=== PATIENT | female | born 1990 | race Caucasian/White ===

== ENCOUNTER 2022-05-03 07:51 | Inpatient (IN) ==
[2022-05-03] MEDS ORDERED: OXYTOCIN 30 UNITS/500 ML BAG IV PRN ×3 (08:40→21:21)
[2022-05-03] MEDS ORDERED: PENICILLIN G POTASSIUM 6 MU in DEXTROSE 5% 250 ML IV STA (08:40)
[2022-05-03] MEDS: LACTATED RINGER'S 1,000 ML IV PRN ×2 (08:59→18:29)
--- NOTE | 2022-05-03 09:11 | History & Physical Report ---
Date of Service May 03, 2022 Assessment & Plan (1) conceived through in vitro fertilization: Plan: 32 y/o at 39 5/7 wga presents for eIOL VSS Fetus cat 1 Labor - will start pit. Discussed timing of pit, arom, pt amenable GBS +, will start pcn epidural prn Admission and Anticipated Discharge Date Admission Date: May 03, 2022 History of Present Illness Chief Complaint: IOL Primary Care Provider: NO PCP 32 y/o at 39 5/7 wga presents for eIOL due to suspected LGA. Reddy bulb fell out overnight. 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 Hx: G1 2019 VAVD at 41 wks, 8lbs 13oz regular cycles denies hx STIs 01/2020 neg cyto Allergies Allergy/AdvReac Type Severity Reaction Status Date / Time No Known Allergies Allergy Verified 05/02/22 15:22 Home Medications Medication Instructions Recorded Confirmed Type prenat.vits,uma,[id number] 1 tab PO DAILY 05/03/22 05/03/22 History Patient History Medical History Chicken pox History of in vitro fertilization conceived through in vitro fertilization Surgical History (Updated 05/03/22 @ 09:14 by Vanda Garza MD) H/O vaginal surgery cystectomy done vaginally History of appendectomy History of tonsillectomy [place] teeth extracted Family History (Updated 11/02/21 @ 09:57 by Taylor HAILE, ANUSHKA) Aunt Cancer Grandfather (Maternal) Diabetes Denies family history of Ovarian cancer Lung cancer Hypertension Social History (Updated 11/02/21 @ 09:58 by Taylor HAILE, ANUSHKA) Smoking Status: Never smoker Hx Alcohol Use: No Hx Substance Use: No Preferred Language: Ukrainian Communication Ability: Effective Engineer Of System Development Required: No Beliefs That Will Affect Care: None marital status: marital status details: Rg Alvarado (35) [phone] Current Living Situation: Family Current Living Situation Comment: and daughter. 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 Other Information That Helps Us Care for You: No Feels Safe at Home: Yes Safety Concerns: Feels Safe At This Time Assistive Devices: None Physical Exam Genitourinary: OB Exam Abdomen: + vertex and + estimated weight (8-9) Manual OB Exam: + cervical dilation 3 cm, + cervical effacement 50% and + station -2 OB Exam Monitor Tracing: + external FHT monitor used, + external uterine monitor used (irreg) and + category I (150/mod/+accel/-decel) Results & Data ([facility]) Vital Signs (Past 12 Hours) Vital Signs Temp Pulse Resp BP 05/03/22 08:04 98.2 F 90 20 115/71 05/03/22 08:00 90 115/71 Laboratory Results OB Labs: Blood Type O Positive 11/29/21 Antibody Screen NEGATIVE 11/29/21 Hemoglobin 12.6 g/dL (12.0-16.0) 02/13/22 Hematocrit 36.8 % (37-47) L 02/13/22 Mean Corpuscular Volume 91.7 fL (80-100) 11/29/21 Platelet Count 157 K/uL (130-400) 11/29/21 Rubella IgG Antibody Immune (Immune) 11/29/21 Rapid Plasma Reagin Nonreactive (Nonreactive) 11/29/21 Hepatitis B Surface Antigen Neg (Neg) 11/29/21 Hepatitis C Antibody Neg (Neg) 11/29/21 HIV (1&2) Ab and P24 Ag, 4th Gener Neg (Neg) 11/29/21 Glucose 1 Hour 50 gm Load 127 mg/dl (70-130) 02/13/22 OB Optional Labs: Chlamydia trachomatis RNA NOT DETECTED (NOT DETECTED) 11/07/21 Neisseria gonorrhoeae RNA NOT DETECTED (NOT DETECTED) 11/07/21 Thyroid Stimulating Hormone (TSH) 1.170 uIu/ml (0.300-4.500) 08/30/21 Labs Reviewed: msafp declined--smp pregenetically tested embryo--smp Diagnostic Findings 04/11 EFW 93%, ant plac Coding Level of Care Code None Diagnoses conceived through in vitro fertilization O09.819
[2022-05-03 09:55] LABS: Hematocrit (blood only) 36.3 % (37-47); Hemoglobin 12.3 g/dL (12.0-16.0); Mean Corpuscular Hemoglobin 31.2 pg (25-34); Mean Corpuscular Hgb Conc 33.9 g/dL (32-36); Mean Corpuscular Volume 92.1 fL (80-100); Mean Platelet Volume 12.3 fL (7.4-10.4); Platelet Count 122 K/uL (130-400); RDW Coefficient of Variation 12.5 % (11.5-14.5); RDW Standard Deviation 42.4 fL (36.4-46.3); Red Blood Count 3.94 M/uL (4.2-5.4); White Blood Count 9.41 K/uL (4.8-10.8)
[2022-05-03 09:56] LABS: Platelet Estimate Decreased (Normal)
[2022-05-03] MEDS: PENICILLIN G POTASSIUM 3 MU in DEXTROSE 5% 100 ML IV PRN ×2 (13:22→17:42)
--- NOTE | 2022-05-03 14:26 | Labor Progress Brief Note ---
Date of Service May 03, 2022 Subjective Feeling contractions but tolerable Assessment & Plan (1) conceived through in vitro fertilization: Plan: 32 y/o at 39 5/7 wga presents for eIOL VSS Fetus cat 1 Labor - pit at 10, now s/p arom after pt agreeable. Continue augmentation GBS +, pcn ordered epidural prn Admission and Anticipated Discharge Date Admission Date: May 03, 2022 Physical Exam Genitourinary: Manual OB Exam: + cervical dilation 4 cm, + cervical effacement 50% and + station -2 OB Exam Monitor Tracing: + external FHT monitor used, + external uterine monitor used (q3-4) and + category I (130/mod/+accel/-decel) Results & Data ([facility]) Vital Signs (Past 12 Hours) Vital Signs Temp Pulse Resp BP 05/03/22 14:16 73 130/62 05/03/22 13:12 67 20 117/62 05/03/22 12:01 68 18 105/64 05/03/22 11:01 98.2 F 64 20 108/58 L 05/03/22 10:30 16 05/03/22 10:00 74 112/75 05/03/22 09:59 20 05/03/22 08:04 98.2 F 90 20 115/71 05/03/22 08:00 90 115/71 Coding Level of Care Code None Diagnoses conceived through in vitro fertilization O09.819
[2022-05-03] MEDS ORDERED: ePHEDrine sulfate 50 MG/ML AMP ONE (17:51)
[2022-05-03] MEDS ORDERED: BUPIVACAINE 0.25% 30 ML VIAL ONE (17:52)
[2022-05-03] MEDS ORDERED: fentaNYL citrate 100 MCG/2 ML VIAL ONE (17:52)
[2022-05-03] MEDS ORDERED: fentaNYL 2MCG/ML ROPIVACAINE 1.25MG/ML 100 ML BAG EPI ONE (17:52)
[2022-05-03] MEDS ORDERED: SODIUM CHLORIDE 0.9% INJ 10 ML VIAL ONE (17:52)
[2022-05-03] MEDS ORDERED: ePHEDrine sulfate 50 MG/ML AMP IV PRN (18:19)
[2022-05-03] MEDS ORDERED: NALBUPHINE HCL INJ 10 MG/ML AMP IV PRN (18:19)
[2022-05-03] MEDS ORDERED: NALOXONE HCL 0.4 MG/1 ML VIAL/CARP IV PRN (18:19)
[2022-05-03] MEDS ORDERED: diphenhydrAMINE 50 MG/ML VIAL IV PRN (18:19)
[2022-05-03] MEDS ORDERED: fentaNYL 2MCG/ML ROPIVACAINE 1.25MG/ML 100 ML BAG EPI PRN (18:19)
[2022-05-03] MEDS ORDERED: ONDANSETRON INJ 2 MG/ML 2 ML VIAL IV PRN (18:19)
[2022-05-03] MEDS ORDERED: NALOXONE HCL 1 MG in SODIUM CHLORIDE 0.9% 1000ML 1,000 ML IV PRN (18:19)
--- NOTE | 2022-05-03 18:23 | Anesthesiology Consultation ---
Date of Service May 03, 2022 Assessment & Plan Chart Review Chart Review: Patient NOT seen in Pre Admission Testing and Acceptable Risk for Labor Epidural Consults Requested none ASA ASA2 Proposed Anesthesia Anesthesia Type: Labor Epidural and CSE Risk / Benefits Reviewed With: PT / POA / Parent / Guardian, Accepts Plan and Informed Consent Obtained History Height/Weight Height: 5 ft 5 in Weight: 83.461 kg Allergies Allergy/AdvReac Type Severity Reaction Status Date / Time No Known Allergies Allergy Verified 05/02/22 15:22 Medications Home Medications Medication Instructions Recorded Confirmed Last Taken prenat.vits,uma,[id number] 1 tab PO DAILY 05/03/22 05/03/22 Unknown Active Medications Generic Name Dose Route Start Last Admin Trade Name Freq PRN Reason Stop Dose Admin Penicillin G Potassium 3 mu/ 106 mls @ 100 mls/hr 05/03/22 11:40 05/03/22 17:42 Dextrose IV 05/13/22 11:39 100 mls/hr Q4H PRN Administration GBS(+) Until Delivery Oxytocin 30 units in 500 mls @ 8 mls/hr 05/03/22 08:42 05/03/22 18:07 Pitocin IV 05/05/22 08:41 0.48 units/hr .Q24H PRN 8 mls/hr Labor Induction/Augmentation Titration Protocol 0.48 UNITS/HR Lactated Ringer's 1,000 mls @ 125 mls/hr 05/03/22 08:40 05/03/22 17:47 Lr IV 05/05/22 08:39 999 mls/hr .Q8H PRN Infusion L&D Protocol Protocol NPO Date Last Intake of Fluids: 05/03/22 Time Last Intake of Fluids: 17:00 Date Last Intake of Solids: 05/03/22 Time Last Intake of Solids: 08:00 Past Medical History Medical History Chicken pox History of in vitro fertilization conceived through in vitro fertilization Exercise / Class Metabolic Activity II 4-5 Yardwork/Stairs/Walk up hill Past Family History Family History Aunt Cancer Grandfather (Maternal) Diabetes Denies family history of Ovarian cancer Lung cancer Hypertension Past Surgical History Surgical History H/O vaginal surgery cystectomy done vaginally History of appendectomy History of tonsillectomy [place] teeth extracted Past Anesthesia History No Hx of Anesthesia Complications and No Family Hx of Anesthesia Complications History of PONV No Hx of PONV and No Hx of Motion Sickness Social History Smoking Status: Never smoker Hx Alcohol Use: No Hx Substance Use: No Review of Systems no chest pain or sob Physical Exam Vital Signs Last Vital Signs Temp 36.6 C 05/03/22 17:00 Pulse 75 05/03/22 17:00 Resp 20 05/03/22 17:00 BP 120/72 05/03/22 17:00 ENMT Mouth: no TMJ abnormality Thyromental Distance: > or= 3.5 Finger Breadths Mallampati Class: II Neck normal visual inspection Respiratory normal respiratory effort Auscultation: lungs clear to auscultation bilaterally Cardiovascular Rate/Rhythm: regular rate and regular rhythm Musculoskeletal Spine: normal cervical ROM Neurologic moves all extremities Psychiatric Orientation: alert and oriented x 3 Testing Laboratory Results 05/03/22 09:09
--- NOTE | 2022-05-03 21:07 | Delivery Summary ---
Vaginal Delivery Summary Date of Service May 03, 2022 Vaginal Delivery Summary [facility] PREOPERATIVE DIAGNOSIS: 1. Single intrauterine at 39 5/7 wga 2. Suspected LGA 3. IVF/ICSI 4. GBS+ POSTOPERATIVE DIAGNOSIS: 1. Single intrauterine at 39 5/7 wga 2. Suspected LGA 3. IVF/ICSI 4. GBS+ 5. Delivered PROCEDURE: 1. Normal spontaneous vaginal delivery. SURGEON: Vanda Garza MD ANESTHESIA: Epidural. ESTIMATED BLOOD LOSS: 300 mL FLUIDS: Continuous LR. URINE OUTPUT: None. COMPLICATIONS: None. CONDITION: Stable. INDICATIONS: 32 y/o at 39 5/7 wga presented for elective induction of labor due to suspected LGA. Reddy bulb was placed and expulsed. Penicillin was started for GBS+ status. Pitocin was started and titrated up. She underwent artificial rupture of membranes and progressed to 9cm at which point she received an epidural. Shortly after she became complete and desired to push. FINDINGS: A viable male infant, weight pending with Apgars of 9 and 9 at 1 and 5 minutes respectively. SPECIMEN: Cord blood OPERATIVE REPORT: The patient progressed to 10 cm, 100% effaced and +2 station, pushed over intact perineum with anesthesia to deliver a viable male infant, weight and Apgars as above. Head of delivered in TIFFANIE position. No nuchal cord was present. Body and shoulders were delivered without difficulty. was delivered to maternal abdomen and nursing staff. Delayed cord clamping was performed for 60 seconds. Cord was clamped and cut. Cord blood was obtained. Placenta delivered spontaneously intact with 3-vessel cord. IV oxytocin and fundal massage were given for excellent hemostasis. Vagina, cervix, perineum, and placenta were inspected. No lacerations were noted. Sponge and needle counts correct x2. No sponges were left behind. Mother and stable in immediate period. [facility] Vaginal Delivery Charge Vaginal Delivery Codes: 38053 global code for the antepartum, delivery, and post- Delivery Type Details: [facility]
[2022-05-03] MEDS ORDERED: ACETAMINOPHEN 325 MG TAB PO PRN (21:21)
[2022-05-03] MEDS ORDERED: HYDROCORTISONE ACETATE 25 MG SUPP PR PRN (21:21)
[2022-05-03] MEDS ORDERED: BENZOCAINE 20% AER SPR 82.5 GM CAN EXT PRN (21:21)
[2022-05-03] MEDS ORDERED: bisacodyL 10 MG SUPP PR PRN (21:21)
[2022-05-03] MEDS ORDERED: DIPHTHERIA/TETANUS/PERTUSSIS 0.5 ML SYR/VIAL IM ONE (21:21)
[2022-05-03] MEDS ORDERED: IBUPROFEN 600 MG TAB PO PRN (21:21)
--- NOTE | 2022-05-04 06:58 | Obstetrical Progress Note ---
Date of Service May 04, 2022 Assessment & Plan (1) Encounter for care and examination after delivery: Plan: Patient is a 32-year-old now G2, P2 female who delivered via normal spontaneous vaginal delivery, day 1. had no complications. -Continue routine care, likely discharge tomorrow -Antibody negative, O+, rubella immune, GBS positive treated with penicillin -Encouraged ambulation and breast-feeding -Pain controlled today -6-week follow-up with Dr. Garza Admission and Anticipated Discharge Date Admission Date: May 03, 2022 Supervising Physician Co-Signing Physician Notes Resident Physician Supervision Note: I was present with Dr. Jesus during the history and exam. I discussed the case with the resident and agree with the findings and plan as documented in the note. Any exceptions or clarifications are listed here: PP1 s/p , doing well. VSS, exam benign and wnl. Continue rout pp care as delivered late last evening Documented By: Vanda Garza MD Subjective Patient is a 32-year-old now G2, P2 female who delivered via normal spontaneous vaginal delivery, day 1. had no complications. Patient overall doing well. Patient is ambulating and voiding without difficulty. Passing gas. Eating and drinking without nausea or vomiting. Lochia moderate and improving. Breast-feeding without difficulty. Pain controlled today. Patient denies fever, chills, chest pain, shortness of breath, UTI symptoms, headache. Patient did deliver late yesterday, so cannot be discharged until 24 hours after delivery. Patient understanding of this and would like to be discharged tomorrow morning. No other complaints at this time. Review of Systems Review of Systems: All systems reviewed & are unremarkable except as noted in HPI & below Physical Exam Constitutional: WD/WN, vitals as above Eyes: + anicteric sclerae Neck: trachea midline, no thyromegaly Respiratory: normal respiratory effort, lungs clear to auscultation Cardiovascular: RRR, no murmur, no edema Gastrointestinal (Abdomen): normal bowel sounds, soft, nontender, no hepatosplenomegaly Musculoskeletal: Head/Neck/Chest: normocephalic and head atraumatic Skin: no rashes, warm and dry Neurologic: moves all extremities Psychiatric: A+Ox3, euthymic affect Genitourinary: Uterine fundus palpated at the level of the umbilicus, firm Results & Data ([facility]) Vital Signs (Past 12 Hours) Vital Signs Temp Pulse Pulse Resp BP BP Pulse Ox 05/04/22 04:30 37.3 C 60 20 112/71 99 05/03/22 23:45 36.4 C L 79 16 117/70 97 05/03/22 23:02 36.5 C 79 18 105/59 L 05/03/22 22:47 93 H 108/57 L 05/03/22 22:32 82 18 111/58 L 05/03/22 22:17 90 112/58 L 05/03/22 22:02 76 16 113/55 L 05/03/22 21:48 91 H 18 119/58 L 05/03/22 21:32 95 H 16 125/57 L 05/03/22 21:17 101 H 18 127/75 05/03/22 21:02 36.7 C 105 H 22 120/70 05/03/22 20:48 162 H 91 05/03/22 20:47 160 H 97 05/03/22 20:42 152 H 98 05/03/22 20:37 163 H 97 05/03/22 20:35 160 H 87 L 05/03/22 20:32 161 H 87 L 05/03/22 20:30 153 H 94 05/03/22 20:27 152 H 98 05/03/22 20:23 147 H 90 05/03/22 20:22 156 H 99 05/03/22 20:17 150 H 98 05/03/22 20:12 141 H 97 05/03/22 20:08 132 H 90 05/03/22 20:07 132 H 98 05/03/22 20:02 133 H 99 05/03/22 19:57 114 H 99 05/03/22 19:52 78 98 05/03/22 19:48 80 106/52 L 05/03/22 19:47 73 97 05/03/22 19:42 78 97 05/03/22 19:37 82 98 05/03/22 19:32 70 117/61 99 05/03/22 19:27 91 H 98 05/03/22 19:22 80 96 05/03/22 19:17 79 117/58 L 96 05/03/22 19:13 78 93 05/03/22 19:12 80 96 05/03/22 19:07 80 100 05/03/22 19:03 67 111/51 L 05/03/22 19:02 67 100 05/03/22 18:56 67 99 05/03/22 18:55 36.5 C 16
[2022-05-04] MEDS: PRENATAL VITAMIN 1 TAB PO SCH (08:56)
[2022-05-04] MEDS: FERROUS SULFATE 325 MG TAB PO SCH (08:56)
[2022-05-04] MEDS: DOCUSATE SODIUM 100 MG CAP PO SCH ×2 (08:56→20:45)
--- NOTE | 2022-05-04 11:32 | Anesthesia Procedure Note ---
Date of Service May 04, 2022 Anesthesia Post Epidural Note Vital Signs Vital Signs: Temp Pulse Resp BP Pulse Ox 37.3 C 60 20 112/71 99 05/04/22 04:30 05/04/22 04:30 05/04/22 04:30 05/04/22 04:30 05/04/22 04:30 Pain Intensity Bilateral Abdomen: Pain Intensity: 0 Notes Mental Status: alert / awake / arousable and participated in evaluation Patient Amnestic to Procedure: No Nausea / Vomiting: adequately controlled Pain: adequately controlled Airway Patency, RR, SpO2: stable & adequate BP & HR: stable & adequate Hydration State: stable & adequate Neuraxial Anesthesia: was administered and sensory block is resolving Anesthetic Complications: no major complications apparent and Pt Satisfied with anesthetic care Epidural: Removed without complications and With tip intact
[2022-05-04] MEDS ORDERED: bisacodyL 5 MG TABEC PO SCH (20:00)
--- NOTE | 2022-05-05 05:17 | Obstetrical Progress Note ---
Date of Service May 05, 2022 Assessment & Plan (1) Encounter for care and examination after delivery: Plan: Patient is a 32-year-old now G2, P2 female who delivered via normal spontaneous vaginal delivery, day 2. had no complications. -Continue routine care, discharge today, discharge instructions reviewed -Antibody negative, O+, rubella immune, GBS positive treated with penicillin -Encouraged ambulation and breast-feeding -Pain controlled today -6-week follow-up with Dr. Garza Admission and Anticipated Discharge Date Admission Date: May 03, 2022 Supervising Physician Co-Signing Physician Notes Resident Physician Supervision Note: I was present with Dr. Jesus during the history and exam. I discussed the case with the resident and agree with the findings and plan as documented in the note. Any exceptions or clarifications are listed here: PPD#2 doing well. DC home today. Instructions reviewed. Documented By: Estelita Anutnez, DO Subjective Patient is a 32-year-old now G2, P2 female who delivered via normal spontaneous vaginal delivery, day 2. had no complications. Patient overall doing well. Patient is ambulating and voiding without difficulty. Passing gas. Eating and drinking without nausea or vomiting. Lochia moderate and improving. Breast-feeding without difficulty. Pain controlled today. Patient denies fever, chills, chest pain, shortness of breath, UTI symptoms, headache. Patient did deliver late yesterday, so cannot be discharged until 24 hours after delivery. Patient understanding of this and would like to be dis charged tomorrow morning. No other complaints at this time. Review of Systems Review of Systems: All systems reviewed & are unremarkable except as noted in HPI & below Physical Exam Constitutional: WD/WN, vitals as above Eyes: + anicteric sclerae Neck: trachea midline, no thyromegaly Respiratory: normal respiratory effort, lungs clear to auscultation Cardiovascular: RRR, no murmur, no edema Gastrointestinal (Abdomen): normal bowel sounds, soft, nontender, no hepatosplenomegaly Musculoskeletal: Head/Neck/Chest: normocephalic and head atraumatic Skin: no rashes, warm and dry Neurologic: moves all extremities Psychiatric: A+Ox3, euthymic affect Genitourinary: Uterine fundus palpated at the umbilicus, firm Results & Data ([facility]) Vital Signs (Past 12 Hours) Vital Signs Temp Pulse Resp BP Pulse Ox 05/04/22 23:05 36.5 C 61 18 104/65 99 05/04/22 20:00 36.6 C 71 16 108/67 96
[2022-05-05] MEDS: FERROUS SULFATE 325 MG TAB PO SCH (08:25)
[2022-05-05] MEDS: DOCUSATE SODIUM 100 MG CAP PO SCH (08:25)
[2022-05-05] MEDS: PRENATAL VITAMIN 1 TAB PO SCH (08:25)
== END 2022-05-05 10:30 | disposition home or self-care (01) | DRG 807 ==
LOC: 4S1 07:51 → 4E2 23:28